=== PATIENT | male | born 1950 | race Caucasian/White ===

== ENCOUNTER → 2016-08-24 | Outpatient (CLI) | payer OTHER | LOC: FIMAGING 07:47 | DX: M13.852 Other specified arthritis, left hip (principal); M25.452 Effusion, left hip; Z96.642 Presence of left artificial hip joint | CPT/HCPCS: A9503 ==

== ENCOUNTER 2017-11-22 19:39 | Emergency (ER) | payer OTHER ==
[2017-11-22 19:44] VITALS: BP 142/93
--- NOTE | 2017-11-22 19:44 | EDPHY ---
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 He bent down and felt a "bubbly, painless" sensation in his left eye. He describes difficulty seeing out of the lower half of his left visual field only in his left eye. He says it "looks like a bubble" that moves around slightly "like an ameboid mass." He further describes it "like looking through gelatinous material that's moving in entire lower half of my vision. He has normal peripheral vision. No headache, weakness, paresthesias, pain, fever, or other complaints. REVIEW OF SYSTEMS: A comprehensive 10 system review of systems is otherwise negative aside from elements mentioned in the history of present illness. PMH: Cataract surgery 2 years ago - [facility] in [place]; hypertension; arthritis with multiple ortho surgeries; repeat hip dislocations; BPH. SOCIAL HISTORY: at bedside. Former ED physician. PHYSICAL EXAM: General:Patient is alert, in no acute distress. ENT:Eyes are normal to inspection. ENT inspection normal. Unable to distinguish any letters on chart with left eye. Intraocular pressure left eye: 10. Normal pupillary response. No scleral injection. EOMI. Neck: Normal inspection. Full range of motion. Respiratory:No respiratory distress. Cardiovascular: Normal cap refill. Skin: Normal color. No rash. Warm and dry. Extremities: Normal appearance. Full range of motion. Neuro: Oriented x3. Normal motor function. Normal sensory function. 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 Exam here is unremarkable. Patient's description is not consistent with a retinal detachment. Vitreous hemorrhage more likely. Normal intraocular pressure. 1mg PO Ativan ordered for anxiety. Ophthalmology paged. Consulted with Dr. Varner, ophthalmology. He will see patient in his office first thing tomorrow morning. Reassessed patient and discussed recommendations. He is comfortable with plan for follow up. Return precautions discussed. MDM: This patient presents with sudden onset of what sounds like a large floater. Given mobility of deficit, I think this is highly unlikely to represent retinal detachment or ischemic/embolic disease. Patient will be urgently evaluated by ophtho within 12 hours and he is comfortable with this plan. - Data Points Medications Given: Discontinued Medications Lorazepam (Ativan) 1 mg PO EDNOW ONE Stop: 11/22/17 19:54 Last Admin: 11/22/17 19:56 Dose: 1 mg General Time Seen by Provider: 11/22/17 19:43 Initial Vital Signs: Initial Vital Signs Temperature (C) 36.7 C 11/22/17 19:42 Heart Rate 120 H 11/22/17 19:42 Respiratory Rate 18 11/22/17 19:42 Blood Pressure 142/93 H 11/22/17 19:42 O2 Sat (%) 99 11/22/17 19:42 O2 Delivery Mode Room Air Allergies/Adverse Reactions: No Allergies [NKDA] Allergy (Verified 10/14/17 14:58) Home Medications: Medication Instructions Recorded Aspirin [Aspirin 81mg (*)] 81 mg PO DAILY 08/14/17 Tamsulosin HCl [Flomax 0.4 MG (*)] 0.2 mg PO DAILY 08/14/17 Testosterone IM [Testosterone 200 mg IM AD 08/14/17 100mg/ml IM inj (*)] lamoTRIgine [Lamotrigine] 200 mg PO DAILY 08/14/17 Percocet 10-325 mg Tablet 10/11/17 Departure - Departure Disposition: Home, Routine, Self-Care Clinical Impression: Visual changes Condition: Good Instructions: Blurred Vision (ED) Additional Instructions: Follow-up with Dr. Varner from ophthalmology first thing tomorrow morning, at 6 :45am. His office is at [address] [place] [address], [address], just across the street from the hospital. Return to the ED immediately for any change in condition or vision. We recommend you make arrangements to not drive home after the evaluation as he will likely dilate your pupil for exam. Referrals: NONE *PRIMARY CARE P,. [Primary Care Provider] - As per Instructions Kevin Varner MD [Medical Doctor] - As per Instructions Report Scribed for: Alli Chin Report Scribed by: April Tony Date of Report: 11/22/17 Time of Report: 19:44 Physician Review and Approval Statement: Portions of this note were transcribed by an ED scribe. I personally performed the history, physical exam, and medical decision making; and confirm the accuracy of the information in the transcribed note.
[2017-11-22] MEDS ORDERED: LORazepam 1 MG TAB PO ONE (19:53)
== END 2017-11-22 20:34 | disposition home or self-care (01) ==
DX: H54.62 Unqualified visual loss, left eye, normal vision right eye (principal); I10 Essential (primary) hypertension

== ENCOUNTER 2017-12-18 10:04 | Emergency (ER) | payer OTHER ==
[2017-12-18 10:12] VITALS: BP 124/81
--- NOTE | 2017-12-18 10:29 | EDPHY ---
H & P Stated Complaint: Retinal surgery 12/16/17, no change in symptoms Time Seen by Provider: 12/18/17 10:19 HPI/ROS: CHIEF COMPLAINT: Retinal surgery HISTORY OF PRESENT ILLNESS: Patient is a 67-year-old man with a history of cataract surgery several years ago and then retinal detachment recently. He had a retinal surgery Saturday with Dr. Herrera's office. He had laser stone. He is supposed to remain face down as much as possible and with an eye patch in place. He was seen in their clinic yesterday and had a good follow-up appointment. They are happy with the results. His called him and told him to come to the ER today because he was not being compliant with lying face down. They are . The patient is at home with 24 hr care trying to help him remain lying face down. The patients said that he told her this morning that he could not see out of the eye. The patient does not remember saying this and he thinks that his just "freaked out". 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 He states that he has no visual changes compared to yesterday. He states that his vision is completely better than it was before the surgery. No pain. No discharge. No increase in swelling. He denies any new symptoms today. Severity: Minimal Modifying factors: None REVIEW OF SYSTEMS: Constitutional: denies: chills, fever, recent illness, recent injury EENTM: See HPI Respiratory: denies: cough, shortness of breath Cardiac: denies: chest pain, irregular heart rate, lightheadedness, palpitations Gastrointestinal/Abdominal: denies: abdominal pain, diarrhea, nausea, vomiting, blood streaked stools Genitourinary: denies: dysuria, frequency, hematuria, pain Musculoskeletal: denies: joint pain, muscle pain Skin: denies: lesions, rash, jaundice, bruising Neurological: denies: headache, numbness, paresthesia, tingling, dizziness, weakness Hematologic/Lymphatic: denies: blood clots, easy bleeding, easy bruising Immunologic/allergic: denies: HIV/AIDS, transplant 10 systems reviewed and negative except as noted EXAM: GENERAL: Well-appearing, well-nourished and in no acute distress. HEAD: Atraumatic, normocephalic. EYES: Left eye with mild chemosis is. Visual acuity the report is baseline. He is hesitant to move his eye patch but did briefly. No sign of infection. Extraocular muscles intact. No pain. ENT: TMs normal, nares patent, oropharynx clear without exudates. Moist mucous membranes. NECK: Normal range of motion, supple without lymphadenopathy or JVD. LUNGS: Breath sounds clear to auscultation bilaterally and equal. No wheezes rales or rhonchi. HEART: Regular rate and rhythm without murmurs, rubs or gallops. ABDOMEN: Soft, nontender, normoactive bowel sounds. No guarding, no rebound. No masses appreciated. BACK: No CVA tenderness, no spinal tenderness, step-offs or deformities EXTREMITIES: Normal range of motion, no pitting or edema. No clubbing or cyanosis. NEUROLOGICAL: Cranial nerves II through XII grossly intact. Normal speech, normal gait. 5/5 strength, normal movement in all extremities, normal sensation , normal reflexes PSYCH: Normal mood, normal affect. SKIN: Warm, dry, normal turgor, no visible rashes or lesions. Source: Patient Exam Limitations: No limitations - Personal History Current Tetanus Diphtheria and Acellular Pertussis (TDAP): Yes - Medical/Surgical History Hx Asthma: No Hx Chronic Respiratory Disease: No Hx Diabetes: No Hx Cardiac Disease: No Hx Renal Disease: No Hx Cirrhosis: No Hx Alcoholism: No Hx HIV/AIDS: No Hx Splenectomy or Spleen Trauma: No Other PMH: L hip replacement, BPH, depression, htn. Retinal surgery 12/16/17 - Family History Significant Family History: No pertinent family hx - Social History Smoking Status: Never smoked Alcohol Use: Sober Drug Use: None Constitutional: Initial Vital Signs Temperature (C) 36.8 C 12/18/17 10:08 Heart Rate 83 12/18/17 10:08 Respiratory Rate 16 12/18/17 10:08 Blood Pressure 124/81 H 12/18/17 10:08 O2 Sat (%) 97 12/18/17 10:08 Allergies/Adverse Reactions: No Allergies [NKDA] Allergy (Verified 12/19/17 21:43) Home Medications: Medication Instructions Recorded Amphet Asp and D/Amphet [Adderall 30 mg PO BID 12/19/17 20 mg (*)] Diclofenac Sodium 1% [Voltaren Gel 1 fransisco TP DAILY PRN 12/19/17 (*)] Finasteride [Proscar 5 MG (*)] 5 mg PO DAILY 12/19/17 Herbals/Supplements -Info Only 1 ea PO DAILY 12/19/17 LORazepam [Ativan (*)] 2 mg PO TID PRN 12/19/17 Multivitamins [Multivitamin (*)] 1 each PO DAILY 12/19/17 Prednisolone Acetate/Pf 1 drop LEFTEYE QID 12/19/17 [Prednisolone Acet 1% Eye Drop] Prochlorperazine Maleate 10 mg PO Q6H PRN 12/19/17 [Compazine 10mg (*)] QUEtiapine FUMARATE [Seroquel 600 mg PO HS PRN 12/19/17 300mg (*)] Testosterone IM [Testosterone 200 mg IM Q14D 12/19/17 100mg/ml IM inj (*)] celeCOXIB [Celebrex (*)] 200 mg PO BID PRN 12/19/17 lamoTRIgine [LamICTAL 100 MG (*)] 200 mg PO DAILY 12/19/17 Medical Decision Making ED Course/Re-evaluation: It sounds as though the patient's told him to come here basically because he was noncompliant with lying face down at home. We discussed this. The patient has 24 hr care helping him to remain lying face down. I do not think that this will be any better in the hospital. The patient is otherwise asymptomatic and has no complaints. I did offer to call Dr. Herrera's office to see if she could follow up with him again today for recheck. He would like this. 10:30 p.m. I did discussed the case with Dr. Medina who saw him yesterday. She does not feel that any intervention or admission is needed this time and will follow up with him next week as planned. Differential Diagnosis: Partial list of the Differential diagnosis considered include but were not limited to; retinal detachment, anxiety and although unlikely based on the history and physical exam, I also considered abrasion, infection. Departure - Departure Disposition: Home, Routine, Self-Care Clinical Impression: Subconjunctival hemorrhage of left eye, H/O eye surgery Condition: Fair Instructions: Subconjunctival Hemorrhage (ED) Additional Instructions: Continue to wear your eye patch. Follow up with Dr. Herrera's office next week as planned. Remain lying face down as much as possible. Referrals: JEAN MARIE MAZARIEGOS [Other] - As per Instructions
== END 2017-12-18 10:41 | disposition home or self-care (01) ==
DX: H11.32 Conjunctival hemorrhage, left eye (principal)

== ENCOUNTER 2017-12-19 19:40 | Observation (INO) | payer OTHER ==
--- NOTE | 2017-12-19 20:14 | EDPHY ---
H & P Time Seen by Provider: 12/19/17 19:58 HPI/ROS: Chief complaint. Hip dislocation HPI. Patient is a 67-year-old male with prosthetic left hip. He was seen October 11 and October 14 2017 for hip dislocation. The patient was also seen November 22 for retinal detachment. Tonight he twisted his foot and his left hip when out and feels like previous dislocation. He was unable to stand. No other injuries. Patient's ex- tells me that the patient has not been doing well at home. He has caretakers who are telling her that he is crawling around on the floor confused and disoriented. He apparently has access to quite a few medications that he is taking indiscriminately. She asked the caretakers to bring him to the ER yesterday however apparently the evaluation was for recheck of his high from the recent retinal detachment and there of behavior issues were not addressed. She is also a physician and tells me that in her opinion he is not safe to go home. ROS 10 systems were reviewed and negative with the exception of the elements mentioned in the history of present illness Past Medical/Surgical History: Left hip replacement, BPH, depression, hypertension, retinal surgery Social History: , nonsmoker, no alcohol Smoking Status: Never smoked Physical Exam: General Appearance: Alert well-developed male moderate distress vital signs significant for initial blood pressure low 101/64 Eyes: Pupils equal and round no pallor or injection. ENT, Mouth: Mucous membranes are moist. Respiratory: There are no retractions, lungs are clear to auscultation. Cardiovascular: Regular rate and rhythm. Gastrointestinal: Abdomen is soft and nontender, no masses, bowel sounds normal. Neurological: Awake and alert, sensory and motor exams grossly normal. Skin: Warm and dry, no rashes. Musculoskeletal: Neck is supple nontender. Extremities left hip is shortened and externally rotated. Pain with range of motion about the left hip Psychiatric: Patient is oriented X 3, there is no agitation. However the patient does have slurred speech. Constitutional: Initial Vital Signs Temperature (C) 36.5 C 12/19/17 19:41 Heart Rate 97 12/19/17 19:41 Respiratory Rate 16 12/19/17 19:41 Blood Pressure 101/64 12/19/17 19:41 O2 Sat (%) 95 12/19/17 19:41 O2 Delivery Mode [Post Nasal Cannula Procedure 2nd] O2 Delivery Mode [Post Non-Rebreather Mask Procedure 1st] O2 Delivery Mode [Procedural Non-Rebreather Mask 2nd] O2 Delivery Mode [Procedural Non-Rebreather Mask 1st] O2 Delivery Mode [.Immediate Non-Rebreather Mask Pre-Procedure] O2 Delivery Mode Room Air O2 (L/minute) [Post Procedure 3 2nd] O2 (L/minute) [Post Procedure 15 1st] O2 (L/minute) [Procedural 2nd] 15 O2 (L/minute) [Procedural 1st] 15 O2 (L/minute) [.Immediate Pre- 15 Procedure] O2 (L/minute) 15 Allergies/Adverse Reactions: No Allergies [NKDA] Allergy (Verified 12/19/17 21:43) Home Medications: Medication Instructions Recorded Amphet Asp and D/Amphet [Adderall 30 mg PO BID 12/19/17 20 mg (*)] Diclofenac Sodium 1% [Voltaren Gel 1 fransisco TP DAILY PRN 12/19/17 (*)] Finasteride [Proscar 5 MG (*)] 5 mg PO DAILY 12/19/17 Herbals/Supplements -Info Only 1 ea PO DAILY 12/19/17 LORazepam [Ativan (*)] 2 mg PO TID PRN 12/19/17 Multivitamins [Multivitamin (*)] 1 each PO DAILY 12/19/17 Prednisolone Acetate/Pf 1 drop LEFTEYE QID 12/19/17 [Prednisolone Acet 1% Eye Drop] Prochlorperazine Maleate 10 mg PO Q6H PRN 12/19/17 [Compazine 10mg (*)] QUEtiapine FUMARATE [Seroquel 600 mg PO HS PRN 12/19/17 300mg (*)] Testosterone IM [Testosterone 200 mg IM Q14D 12/19/17 100mg/ml IM inj (*)] celeCOXIB [Celebrex (*)] 200 mg PO BID PRN 12/19/17 lamoTRIgine [LamICTAL 100 MG (*)] 200 mg PO DAILY 12/19/17 Medical Decision Making - Diagnostics Imaging Results: Imaging Impressions Hip X-Ray 12/19/17 20:04 Impression: Superior dislocation of the left hip arthroplasty. Hip X-Ray 12/19/17 21:12 Impression: Interval reduction of left hip dislocation with no visible fracture. Initial hip x-ray interpreted by me shows superior dislocation Post reduction shows reduction of the hip dislocation and no fracture Procedures: IV normal saline. Dilaudid 0.5 mg IV Due to patient's low blood pressure is given a L of saline but I changed my procedural sedation plan from propofol to IV ketamine Procedure: Conscious sedation. Indication: Hip reduction I performed sedation and reduction The patient is an appropriate candidate to tolerate procedural sedation. The patient's vital signs and mental status are appropriate. The risks, benefits and alternatives of the sedation were discussed with the patient. The patient is ASA classification 1. The patient' s Mallampati airway score was 1 and the patient did meet the 3-3-2 airway measurements. A time out was completed. The patient was sedated with ketamine 100 mg IV. The patient was monitored with continuous pulse oximetry, groundwater monitoring technician and end tidal CO2. There were no complications and no significant hypoxemia. I performed both the sedation and the procedure. The total time I spent at the bedside during the procedural sedation was 20 minutes. The patient was examined after the procedural sedation and has returned to their pre -sedation baseline with normal vital signs and a normal examination. Procedure hip reduction--after adequate sedation, I was able to put traction on the hip and flex it. Counter traction applied to the pelvis. With gentle internal external rode a rotation with the hip in flexion I was able to produce an audible pop and sense that the hip was reduced. Postprocedure neurovascular check is intact. ED Course/Re-evaluation: In conversation with patient's ex- she feels again that he is not safe to go home. He I discussed this with the patient and he is amenable to admission. I consulted discussed case Dr. Kim, hospitalist, who agrees to the admission I consulted discussed case with Dr. Zamarripa for orthopedist as the patient has been seen by Dr. Booth previously for his hip dislocation. They will see the patient while the patient is in the hospital Differential Diagnosis: Hip dislocation this recurrent. Now reduced. No evidence for fracture. Substance abuse and family feels the patient is not safe to be at home. - Data Points Laboratory Results: Laboratory Results 12/19/17 20:05 12/19/17 20:05 12/19/17 12/19/17 20:05 20:05 WBC 9.56 10^3/uL H 10^3/uL (3.80-9.50) RBC 5.86 10^6/uL 10^6/uL (4.40-6.38) Hgb 16.8 g/dL g/dL (13.7-17.5) Hct 50.7 % % (40.0-51.0) MCV 86.5 fL fL (81.5-99.8) MCH 28.7 pg pg (27.9-34.1) MCHC 33.1 g/dL g/dL (32.4-36.7) RDW 14.6 % % (11.5-15.2) Plt Count 278 10^3/uL 10^3/uL (150-400) MPV 8.8 fL fL (8.7-11.7) Neut % (Auto) 72.9 % % (39.3-74.2) Lymph % (Auto) 15.0 % % (15.0-45.0) [place] % (Auto) 8.3 % % (4.5-13.0) Eos % (Auto) 2.6 % % (0.6-7.6) Baso % (Auto) 0.7 % % (0.3-1.7) Nucleat RBC Rel Count 0.0 % % (0.0-0.2) Absolute Neuts (auto) 6.97 10^3/uL H 10^3/uL (1.70-6.50) Absolute Lymphs (auto) 1.43 10^3/uL 10^3/uL (1.00-3.00) Absolute Monos (auto) 0.79 10^3/uL 10^3/uL (0.30-0.80) Absolute Eos (auto) 0.25 10^3/uL 10^3/uL (0.03-0.40) Absolute Basos (auto) 0.07 10^3/uL 10^3/uL (0.02-0.10) Absolute Nucleated RBC 0.00 10^3/uL 10^3/uL (0-0.01) Immature Gran % 0.5 % % (0.0-1.1) Immature Gran # 0.05 10^3/uL 10^3/uL (0.00-0.10) Sodium 136 mEq/L mEq/L (135-145) Potassium 4.3 mEq/L mEq/L (3.3-5.0) Chloride 105 mEq/L mEq/L (97-110) Carbon Dioxide 19 mEq/l L mEq/l (22-31) Anion Gap 12 mEq/L mEq/L (6-14) BUN 22 mg/dL mg/dL (7-23) Creatinine 0.9 mg/dL mg/dL (0.7-1.3) Estimated GFR > 60 Glucose 136 mg/dL H mg/dL (70-100) Calcium 9.9 mg/dL mg/dL (8.5-10.4) Ethyl Alcohol < 10 mg/dL mg/dL (0-10) Medications Given: Discontinued Medications Hydromorphone HCl (Dilaudid) 0.5 mg IVP EDNOW ONE Stop: 12/19/17 20:24 Last Admin: 12/19/17 20:35 Dose: 0.5 mg Sodium Chloride (Ns) 1,000 mls @ 0 mls/hr IV EDNOW ONE; Wide Open PRN Reason: Protocol Stop: 12/19/17 20:24 Last Admin: 12/19/17 20:45 Dose: 1,000 mls Ketamine HCl (Ketamine) 0 - 200 mg IV EDNOW ONE Stop: 12/19/17 20:46 Last Admin: 12/19/17 21:15 Dose: 100 mg Departure - Departure Disposition: [facility] Inpatient Acute Clinical Impression: Hip dislocation, left Qualifiers: Encounter type: initial encounter Qualified Code(s): S73.005A - Unspecified dislocation of left hip, initial encounter Condition: Fair
[2017-12-19 20:19] LABS: PLATELET COUNT 278 10^3/uL (150-400)
[2017-12-19] MEDS ORDERED: HYDROmorphONE/DILAUDID 2 MG/ML INJ IVP ONE (20:23)
[2017-12-19] MEDS ORDERED: NS 1,000 ML IV ONE (20:23)
[2017-12-19] MEDS ORDERED: HYDROmorphONE/DILAUDID 1 MG/ML INJ ONE (20:24)
[2017-12-19] MEDS ORDERED: PROPOFOL 200 MG/20 ML VIAL ONE (20:27)
[2017-12-19] MEDS ORDERED: KETAMINE 500 MG/10 ML VIAL ONE (20:38)
[2017-12-19] MEDS ORDERED: KETAMINE 200 MG/20 ML VIAL IV ONE (20:45)
[2017-12-19] MEDS ORDERED: ONDANSETRON DISINTEGRATING 4 MG TAB PO PRN (22:08)
[2017-12-19] MEDS ORDERED: ONDANSETRON 4 MG/2 ML VIAL IVP PRN (22:08)
[2017-12-19] MEDS ORDERED: ACETAMINOPHEN 325 MG TAB PO PRN (22:08)
--- NOTE | 2017-12-19 23:01 | PDGENHP ---
History and Physical - Chief Complaint L hip pain - History of Present Illness 67 yo M w/ hx of depression and OA presents with L hip pain. The patient tells me he was trying to move a coffee table today when his leg got stuck underneath. He immediately experienced pain in his L hip. He has had this hip dislocate on multiple prior occasions and states he felt similarly. Upon arrival in the ED this was confirmed. The hip was reduced in the ED with XR confirmation. He is being admitted for Orthopedics consultation and PT/OT evaluations. Case discussed with Dr. Lozano, records reviewed in EMR. History Information - Allergies/Home Medication List Allergies/Adverse Reactions: No Allergies [NKDA] Allergy (Verified 12/19/17 21:43) Home Medications: Amphet Asp and D/Amphet [Adderall 20 mg (*)] 30 mg PO BID 12/19/17 [Last Taken 12/18/17] Diclofenac Sodium 1% [Voltaren Gel (*)] 1 fransisco TP DAILY PRN 12/19/17 [Last Taken Unknown] Finasteride [Proscar 5 MG (*)] 5 mg PO DAILY 12/19/17 [Last Taken 12/19/17] Herbals/Supplements -Info Only 1 ea PO DAILY 12/19/17 [Last Taken Unknown] LORazepam [Ativan (*)] 2 mg PO TID PRN 12/19/17 [Last Taken Unknown] Multivitamins [Multivitamin (*)] 1 each PO DAILY 12/19/17 [Last Taken Unknown] Prednisolone Acetate/Pf [Prednisolone Acet 1% Eye Drop] 1 drop LEFTEYE QID 12/19 [Last Taken 12/19/17] Prochlorperazine Maleate [Compazine 10mg (*)] 10 mg PO Q6H PRN 12/19/17 [Last Taken Unknown] QUEtiapine FUMARATE [Seroquel 300mg (*)] 600 mg PO HS PRN 12/19/17 [Last Taken Unknown] Testosterone IM [Testosterone 100mg/ml IM inj (*)] 200 mg IM Q14D 12/19/17 [ Last Taken 12/15/17] celeCOXIB [Celebrex (*)] 200 mg PO BID PRN 12/19/17 [Last Taken Unknown] lamoTRIgine [LamICTAL 100 MG (*)] 200 mg PO DAILY 12/19/17 [Last Taken 12/19/17] I have personally reviewed and updated: family history, medical history - Past Medical History arthritis Additional medical history: Depression. Insomnia. BPH - Surgical History Reports: spinal surgery Additional surgical history: Bilateral hip surgeries. Bilateral knee surgeries. L retinal detachment - Family History Additional family history: Asked, denies - Social History Smoking Status: Never smoked Review of Systems Review of Systems: ROS: 10pt was reviewed & negative except for what was stated in HPI & below Physical Exam Physical Exam: Temp Pulse Resp BP Pulse Ox 36.5 C 88 16 109/61 95 12/19/17 22:20 12/19/17 22:20 12/19/17 22:20 12/19/17 22:20 12/19/17 22:20 O2 (L/minute) 2 Constitutional: no apparent distress, not in pain Eyes: anicteric sclera, other (L eye covered in patch) Ears, Nose, Mouth, Throat: moist mucous membranes, no oral mucosal ulcers Cardiovascular: regular rate and rhythym, no murmur, rub, or gallop Respiratory: no respiratory distress, clear to auscultation Gastrointestinal: normoactive bowel sounds, soft, non-tender abdomen Skin: warm, normal color Musculoskeletal: full muscle strength, pain with ROM (L hip) Neurologic: AAOx3, No weakness Psychiatric: interacting appropriately, not anxious Lab Data & Imaging Review 12/19/17 20:05 12/19/17 20:05 WBC 9.56 10^3/uL (3.80-9.50) H 12/19/17 20:05 RBC 5.86 10^6/uL (4.40-6.38) 12/19/17 20:05 Hgb 16.8 g/dL (13.7-17.5) 12/19/17 20:05 Hct 50.7 % (40.0-51.0) 12/19/17 20:05 MCV 86.5 fL (81.5-99.8) 12/19/17 20:05 MCH 28.7 pg (27.9-34.1) 12/19/17 20:05 MCHC 33.1 g/dL (32.4-36.7) 12/19/17 20:05 RDW 14.6 % (11.5-15.2) 12/19/17 20:05 Plt Count 278 10^3/uL (150-400) 12/19/17 20:05 MPV 8.8 fL (8.7-11.7) 12/19/17 20:05 Neut % (Auto) 72.9 % (39.3-74.2) 12/19/17 20:05 Lymph % (Auto) 15.0 % (15.0-45.0) 12/19/17 20:05 [place] % (Auto) 8.3 % (4.5-13.0) 12/19/17 20:05 Eos % (Auto) 2.6 % (0.6-7.6) 12/19/17 20:05 Baso % (Auto) 0.7 % (0.3-1.7) 12/19/17 20:05 Nucleat RBC Rel Count 0.0 % (0.0-0.2) 12/19/17 20:05 Absolute Neuts (auto) 6.97 10^3/uL (1.70-6.50) H 12/19/17 20:05 Absolute Lymphs (auto) 1.43 10^3/uL (1.00-3.00) 12/19/17 20:05 Absolute Monos (auto) 0.79 10^3/uL (0.30-0.80) 12/19/17 20:05 Absolute Eos (auto) 0.25 10^3/uL (0.03-0.40) 12/19/17 20:05 Absolute Basos (auto) 0.07 10^3/uL (0.02-0.10) 12/19/17 20:05 Absolute Nucleated RBC 0.00 10^3/uL (0-0.01) 12/19/17 20:05 Immature Gran % 0.5 % (0.0-1.1) 12/19/17 20:05 Immature Gran # 0.05 10^3/uL (0.00-0.10) 12/19/17 20:05 Sodium 136 mEq/L (135-145) 12/19/17 20:05 Potassium 4.3 mEq/L (3.3-5.0) 12/19/17 20:05 Chloride 105 mEq/L (97-110) 12/19/17 20:05 Carbon Dioxide 19 mEq/l (22-31) L 12/19/17 20:05 Anion Gap 12 mEq/L (6-14) 12/19/17 20:05 BUN 22 mg/dL (7-23) 12/19/17 20:05 Creatinine 0.9 mg/dL (0.7-1.3) 12/19/17 20:05 Estimated GFR > 60 12/19/17 20:05 Glucose 136 mg/dL (70-100) H 12/19/17 20:05 Calcium 9.9 mg/dL (8.5-10.4) 12/19/17 20:05 Ethyl Alcohol < 10 mg/dL (0-10) 12/19/17 20:05 Imaging Review: Imaging Impressions Hip X-Ray 12/19/17 20:04 Impression: Superior dislocation of the left hip arthroplasty. Hip X-Ray 12/19/17 21:12 Impression: Interval reduction of left hip dislocation with no visible fracture. Chest X-Ray 12/19/17 21:30 Impression: No acute findings in the chest. Assessment & Plan Assessment: 67 yo M w/ hx of arthritis and depression presents with L hip dislocation. Plan: 1. L hip dislocation, acute - S/p reduction in ED, confirmed by XR (personally reviewed/interpreted). He tells me this has occurred on several occasions in the past. - Admit for observation - PT/OT evaluations - Orthopedics consulted in the ED, will see patient in the morning 2. Depression, insomnia - On multiple sedating meds (lorazepam, Seroquel), which may have contributed to above incident. - Continue home medications pending reconciliation 3. Arthritis - S/p multiple surgeries (back, b/l hips, b/l knees). Diet - Regular Code - Full Ppx - LMWH Dispo - Admit under observation status
--- NOTE | 2017-12-19 23:24 | CPEKG ---
Test Reason : OPEN Blood Pressure : / mmHG Vent. Rate : 092 BPM Atrial Rate : 092 BPM P-R Int : 170 ms QRS Dur : 110 ms QT Int : 351 ms P-R-T Axes : 063 070 032 degrees QTc Int : 435 ms Sinus rhythm Confirmed by Adán Huang ([id number]) on 12/19/2017 11:24:19 PM Referred By: Confirmed By:Adán Huang
[2017-12-20 04:50] VITALS: BP 109/76
[2017-12-20 06:26] LABS: PLATELET COUNT 263 10^3/uL (150-400)
--- NOTE | 2017-12-20 07:28 | PDDCSUM ---
Discharge Summary Discharge Summary: Patient left AMA shortly after admission. Please see admission H&P for details regarding presentation.
[2017-12-20] MEDS ORDERED: ENOXAPARIN 40 MG/0.4 ML SYR SC SCH (09:00)
--- NOTE | 2017-12-20 09:40 | ASDISCHSUM ---
Discharge Information Plan Status:Home with No Needs Medically Cleared to Leave: Discharge Date:12/20/2017 07:21 AM CM D/C Disposition:Against Medical Advice ADT D/C Disposition:Against Medical Advice Projected Discharge Date:12/20/2017 07:21 AM Transportation at D/C: Discharge Delay Reason: Follow-Up Date:12/20/2017 07:21 AM Discharge Slot: Final Diagnosis: Placement Information Patient Contact Information Contact Name:SHIRAZ Relationship: Address:[address] City:[place] Alternate Phone: [facility]/Zip Code:[place] [address] Email: Financial Information Financial Class:Medicare Primary Plan Desc:MEDICARE OUTPATIENT Primary Plan Number:[id number] Secondary Plan Desc:YANA Secondary Plan Number:[id number] Assessment Information [facility] CM Progress Note CM Note CM Note Notes: 12/20/2017 Case Management Note Pt left [facility] AMA for an eye appointment. Pt admitted for hip dislocation. Date Signed: 12/20/2017 09:39 AM Electronically Signed By:Karen Llanos RN Intervention Information
--- NOTE | 2017-12-20 09:40 | ASMTCMCOM ---
CM Note CM Note Notes: 12/20/2017 Case Management Note Pt left [facility] for an eye appointment. Pt admitted for hip dislocation. Date Signed: 12/20/2017 09:39 AM Electronically Signed By:Karen Llanos RN
== END 2017-12-20 07:21 | disposition left against medical advice (07) ==
LOC: F3N 22:10
PROVIDERS: ADMIT Internal Medicine; ATTEND Internal Medicine
PROC: 0SSBXZZ Reposition Left Hip Joint, External Approach (ICD-10-PCS; principal; 2017-12-19)
DX: T84.021A Dislocation of internal left hip prosthesis, initial encounter (principal); E86.9 Volume depletion, unspecified
CPT/HCPCS: 27250; 71045; 73502; 73521; 93005; 96361; 96374; 99285; G0378; J1170; J2704; 80305; G0480

== ENCOUNTER 2017-12-29 09:48 | Emergency (ER) | payer OTHER ==
[2017-12-29] MEDS ORDERED: HYDROmorphONE/DILAUDID 2 MG/ML INJ IVP ONE (09:53)
[2017-12-29] MEDS ORDERED: PROPOFOL 200 MG/20 ML VIAL ONE (10:13)
--- NOTE | 2017-12-29 10:13 | EDPHY ---
H & P Stated Complaint: L hip dislocation Time Seen by Provider: 12/29/17 09:52 HPI/ROS: CHIEF COMPLAINT: Left hip dislocation HISTORY OF PRESENT ILLNESS: 67-year-old male presents with a left hip dislocation. He externally rotated and flexed his left hip this morning just prior to arrival. Immediate onset severe left hip pain and inability to bear weight. Transported to the ED by EMS. Fentanyl IV given prior to arrival. Similar to prior episodes of left hip dislocation. 3 prior hip dislocations in the past month. No weakness or numbness. No other injuries. Planning for repeat left hip surgery. Last oral intake was at 7:00 a.m., only coffee. REVIEW OF SYSTEMS: complete 10 point ROS reviewed and is negative except for the noted elements in the HPI Source: Patient - Medical/Surgical History Hx Asthma: No Hx Chronic Respiratory Disease: No Hx Diabetes: No Hx Cardiac Disease: No Hx Renal Disease: No Hx Cirrhosis: No Hx Alcoholism: No Hx HIV/AIDS: No Hx Splenectomy or Spleen Trauma: No Other PMH: Bi hip replacement, left x3 hip replacment, BPH, depression, htn. 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 - Physical Exam Exam: General Appearance: Alert, pleasant Eyes: Pupils equal and round, no conjunctival pallor ENT, Mouth: Mucous membranes moist Neck: Normal inspection Respiratory: Lungs are clear to auscultation Cardiovascular: Regular rate and rhythm Gastrointestinal: Abdomen is soft and nontender Neurological: Alert, anxious, nonfocal exam Skin: Warm and dry, no rash Extremities: Left lower extremity-externally rotated and shortened Psychiatric: Anxious Constitutional: Initial Vital Signs Temperature (C) 36.8 C 12/29/17 09:51 Heart Rate 114 H 12/29/17 09:51 Respiratory Rate 18 12/29/17 09:51 Blood Pressure 155/84 H 12/29/17 09:51 O2 Sat (%) 92 12/29/17 09:51 O2 Delivery Mode [Post Non-Rebreather Mask Procedure 2nd] O2 Delivery Mode [Post Non-Rebreather Mask Procedure 1st] O2 Delivery Mode [Procedural Non-Rebreather Mask 2nd] O2 Delivery Mode [Procedural Non-Rebreather Mask 1st] O2 Delivery Mode [.Immediate Non-Rebreather Mask Pre-Procedure Procedural 1st] O2 Delivery Mode Room Air O2 (L/minute) [Post Procedure 15 2nd] O2 (L/minute) [Post Procedure 18 1st] O2 (L/minute) [Procedural 2nd] 15 O2 (L/minute) [Procedural 1st] 15 O2 (L/minute) [.Immediate Pre- 15 Procedure Procedural 1st] Allergies/Adverse Reactions: No Allergies [NKDA] Allergy (Verified 12/29/17 09:52) Home Medications: Medication Instructions Recorded Amphet Asp and D/Amphet [Adderall 30 mg PO BID 12/19/17 20 mg (*)] Diclofenac Sodium 1% [Voltaren Gel 1 fransisco TP DAILY PRN 12/19/17 (*)] Finasteride [Proscar 5 MG (*)] 5 mg PO DAILY 12/19/17 Herbals/Supplements -Info Only 1 ea PO DAILY 12/19/17 LORazepam [Ativan (*)] 2 mg PO TID PRN 12/19/17 Multivitamins [Multivitamin (*)] 1 each PO DAILY 12/19/17 Prednisolone Acetate/Pf 1 drop LEFTEYE QID 12/19/17 [Prednisolone Acet 1% Eye Drop] Prochlorperazine Maleate 10 mg PO Q6H PRN 12/19/17 [Compazine 10mg (*)] QUEtiapine FUMARATE [Seroquel 600 mg PO HS PRN 12/19/17 300mg (*)] Testosterone IM [Testosterone 200 mg IM Q14D 12/19/17 100mg/ml IM inj (*)] celeCOXIB [Celebrex (*)] 200 mg PO BID PRN 12/19/17 lamoTRIgine [LamICTAL 100 MG (*)] 200 mg PO DAILY 12/19/17 Medical Decision Making - Diagnostics Imaging Results: Imaging Impressions Pelvis X-Ray 12/29/17 09:53 Impression: Superior left hip arthroplasty dislocation. Hip X-Ray 12/29/17 10:27 Impression: 1. Reduction of left hip arthroplasty dislocation. 2. Periprosthetic lucency adjacent to the distal left femoral stem, suspicious for loosening. Findings discussed with TERE CONKLIN 12/29/2017 at 10:55. Left hip x-ray reveals a hip dislocation. Imaging: I viewed and interpreted images myself ED Course/Re-evaluation: Procedure: Procedural sedation. A pre-sedation evaluation was completed on the patient on patient arrival. Patient is an appropriate candidate for procedural sedation. The risks of the sedation were discussed with the patient. The patient's airway was evaluated with a 3-3-2 rule; Mallampati score: 1E; there is no evidence of a difficult airway. A time out was completed. The patient was sedated with propofol 100 mg IV. The patient was monitored with continuous pulse oximetry, capnography and ekg monitor tech. There were no complications and no significant hypoxemia. I remained at the bedside for the sedation. The total time I spent in the procedural sedation was 25 minutes. Procedure: Dislocation reduction. Indication: Dislocation of the left hip joint. Risks, benefits, alternatives discussed with the patient and consent obtained. The hip was reduced with flexion and internal/external rotation without complications. Post reduction the patient's neurovascular exam is normal. Post reduction x-ray demonstrates reduction of the joint to the anatomic position. The procedure was performed by myself. X-ray results discussed with the patient. He tolerated the procedure well and there were no complications. He clearly understands the left hip restrictions, but apparently has been somewhat noncompliant with the guidelines. He will follow up with his orthopedic surgeon in the office this week. - Data Points Medications Given: Discontinued Medications Hydromorphone HCl (Dilaudid) 1 mg IVP EDNOW ONE Stop: 12/29/17 09:54 Last Admin: 12/29/17 10:02 Dose: Not Given Morphine Sulfate (Morphine) 10 mg IVP EDNOW ONE Stop: 12/29/17 10:08 Last Admin: 12/29/17 10:12 Dose: 10 mg Propofol (Diprivan) 130 mg IVP EDNOW ONE Stop: 12/29/17 11:05 Last Admin: 12/29/17 11:05 Dose: 130 mg Departure - Departure Disposition: Home, Routine, Self-Care Clinical Impression: Hip dislocation, left Qualifiers: Encounter type: initial encounter Qualified Code(s): S73.005A - Unspecified dislocation of left hip, initial encounter Condition: Good Instructions: Hip Dislocation (ED) Referrals: JEAN MARIE MAZARIEGOS [Other] - As per Instructions
[2017-12-29] MEDS ORDERED: PROPOFOL 200 MG/20 ML VIAL IVP ONE (11:04)
[2017-12-29 11:35] VITALS: BP 118/70
== END 2017-12-29 11:35 | disposition home or self-care (01) ==
LOC: EDUNIT#
PROC: 0SSBXZZ Reposition Left Hip Joint, External Approach (ICD-10-PCS; principal; 2017-12-29)
DX: S73.005A Unspecified dislocation of left hip, initial encounter (principal); I10 Essential (primary) hypertension; Z96.643 Presence of artificial hip joint, bilateral
CPT/HCPCS: 27252; 72170; 73502; 96374; 96375; 99285; J1170; J2270; J2704

== ENCOUNTER → 2018-02-06 | Outpatient (CLI) | payer OTHER ==
[~2018-02-06] MED LIST: IOPAMIDOL (ISOVUE 370) 100 ML BTL IV ONE; LIDOCAINE 1% 300 MG/30 ML SDV ONE
== END ==
LOC: FIMAGING 12:50
PROC: 0S9D30Z Drainage of Left Knee Joint with Drainage Device, Percutaneous Approach (ICD-10-PCS; principal; 2018-02-06)
DX: T84.021A Dislocation of internal left hip prosthesis, initial encounter (principal); Z96.642 Presence of left artificial hip joint
CPT/HCPCS: 20611; 76882; Q9967

== ENCOUNTER 2018-04-07 09:25 | Emergency (ER) | payer OTHER ==
--- NOTE | 2018-04-07 09:48 | EDPHY ---
H & P Time Seen by Provider: 04/07/18 09:38 HPI/ROS: Chief complaint. Left hip pain HPI. Patient is a 67-year-old male here by EMS with left hip pain. The initial charts as limited trauma activation after fall. The patient however denies that this is true. He tells me he was bending over to put on a sock this morning and had sudden pain in the left hip. Unable to walk. He has hip prosthesis and has had multiple hip dislocations. He tells me this feels the same. He had a retinal detachment 2 months ago. He is awaiting further surgery to the left hip. Denies any other injuries. No chest pain or shortness of breath. No abdominal pain. Patient received fentanyl per EMS ROS 10 systems were reviewed and negative with the exception of the elements mentioned in the history of present illness Past Medical/Surgical History: Bilateral hip replacements. Left hip dislocation times multiple, BPH, depression, hypertension, retinal detachment and surgery Social History: , nonsmoker, no alk Smoking Status: Never smoked Physical Exam: General Appearance: Alert well-developed male moderate distress. Vital signs are stable Eyes: Pupils equal and round no pallor or injection. ENT, Mouth: Mucous membranes are moist. Respiratory: There are no retractions, lungs are clear to auscultation. Cardiovascular: Regular rate and rhythm. Gastrointestinal: Abdomen is soft and nontender, no masses, bowel sounds normal. Neurological: Awake and alert, sensory and motor exams grossly normal. Skin: Warm and dry, no rashes. Abscess left hip measuring 2 x 2 cm. Musculoskeletal: Neck is supple nontender. Extremities pain with motion left hip. Tenderness to palpation left hip. Distal motor vascular sensitivity is intact Psychiatric: Patient is oriented X 3, there is no agitation. Constitutional: Initial Vital Signs Temperature (C) 36.5 C 04/07/18 09:30 Heart Rate 92 04/07/18 09:30 Respiratory Rate 16 04/07/18 09:30 Blood Pressure 129/75 H 04/07/18 09:30 O2 Sat (%) 96 04/07/18 09:30 O2 Delivery Mode Room Air Allergies/Adverse Reactions: No Allergies [NKDA] Allergy (Verified 04/07/18 09:32) Home Medications: Medication Instructions Recorded Amphet Asp and D/Amphet [Adderall 30 mg PO BID 12/19/17 20 mg (*)] Diclofenac Sodium 1% [Voltaren Gel 1 fransisco TP DAILY PRN 12/19/17 (*)] Finasteride [Proscar 5 MG (*)] 5 mg PO DAILY 12/19/17 Herbals/Supplements -Info Only 1 ea PO DAILY 12/19/17 LORazepam [Ativan (*)] 2 mg PO TID PRN 12/19/17 Multivitamins [Multivitamin (*)] 1 each PO DAILY 12/19/17 Prednisolone Acetate/Pf 1 drop LEFTEYE QID 12/19/17 [Prednisolone Acet 1% Eye Drop] Prochlorperazine Maleate 10 mg PO Q6H PRN 12/19/17 [Compazine 10mg (*)] QUEtiapine FUMARATE [Seroquel 600 mg PO HS PRN 12/19/17 300mg (*)] Testosterone IM [Testosterone 200 mg IM Q14D 12/19/17 100mg/ml IM inj (*)] celeCOXIB [Celebrex (*)] 200 mg PO BID PRN 12/19/17 lamoTRIgine [LamICTAL 100 MG (*)] 200 mg PO DAILY 12/19/17 Medical Decision Making - Diagnostics Imaging Results: Imaging Impressions Hip X-Ray 04/07/18 09:45 Impression: Left hip dislocation. Hip X-Ray 04/07/18 10:38 Impression: Persistent left hip dislocation. Hip X-Ray 04/07/18 11:07 Impression: Good anatomic reduction of left total hip arthroplasty. X-ray interpreted by me shows left hip dislocation of the prosthesis. Procedures: Procedure: Conscious sedation. Indication: Hip dislocation I performed sedation and procedure The patient is an appropriate candidate to tolerate procedural sedation. The patient's vital signs and mental status are appropriate. The risks, benefits and alternatives of the sedation were discussed with the patient. The patient is ASA classification 1. The patient' s Mallampati airway score was 1 and the patient did meet the 3-3-2 airway measurements. A time out was completed. The patient was sedated with propofol 100 mg IV. The patient was monitored with continuous pulse oximetry, cardiac monitor and end tidal CO2. There were no complications and no significant hypoxemia. I performed both the sedation and the procedure. The total time I spent at the bedside during the procedural sedation was 20 minutes. The patient was examined after the procedural sedation and has returned to their pre -sedation baseline with normal vital signs and a normal examination. Procedure dislocated hip reduction--after adequate sedation the patient's hip is flexed and knee is flexed. Traction counter traction allowed reduction by me. Post reduction shows good length an almond time anatomic position up the leg. Distal pulses and sensation are symmetrical. Post reduction x-ray shows adequate reduction Incision and drainage of abscess. While the patient was sedated with propofol I infiltrated the abscess left hip with 1% lidocaine with epinephrine. It is incised with a 11 blade. Quite a bit of blood and pus is extruded. The cavity is probed with hemostats to break up loculations. Irrigated. It is packed with iodoform gauze. Patient tolerates the procedure well ED Course/Re-evaluation: Dr. Buster Garcia [phone]--I consulted and discussed the case with Dr. Schreiber who will see the patient on Saturday and discussed hip revision. Patient is back to baseline. He and I discussed treatment plan including criteria for return importance of follow-up and further evaluation. He expresses understanding and agreement Patient has a hip brace which is replaced Differential Diagnosis: Considered dislocation, hardware malfunction, pelvic fracture. The patient also has an abscess and concern is for infection into the hardware. Patient's orthopedist tells me that he does have infected hardware in recommends no antibiotics at this time. - Data Points Medications Given: Discontinued Medications Fentanyl (Sublimaze) 50 mcg IVP EDNOW ONE Stop: 04/07/18 09:57 Last Admin: 04/07/18 10:01 Dose: 50 mcg Propofol (Diprivan) 100 mg IVP EDNOW ONE Stop: 04/07/18 10:20 Last Admin: 04/07/18 10:37 Dose: 100 mg Propofol (Diprivan) 100 mg IVP EDNOW ONE Stop: 04/07/18 11:09 Last Admin: 04/07/18 11:10 Dose: 100 mg Departure - Departure Disposition: Home, Routine, Self-Care Clinical Impression: Hip dislocation, left, Abscess Condition: Good Instructions: Hip Dislocation (ED) Additional Instructions: Wear your brace. Dr. Contreras would like to see you in the office on Saturday. Please call his office to schedule a time for the appointment on Saturday. He is aware of the packing after we drain the abscess left hip. He will remove the packing. Return sooner for worsening symptoms Referrals: Patient,NotPresent [Unknown] - As per Instructions
[2018-04-07] MEDS ORDERED: fentaNYL 100 MCG/2 ML INJ IVP ONE (09:56)
[2018-04-07] MEDS ORDERED: fentaNYL 100 MCG/2 ML INJ ONE (09:57)
[2018-04-07] MEDS ORDERED: PROPOFOL 200 MG/20 ML VIAL IVP ONE ×2 (10:19→11:08)
[2018-04-07] MEDS ORDERED: PROPOFOL 200 MG/20 ML VIAL ONE (10:20)
[2018-04-07 12:32] VITALS: BP 121/86
== END 2018-04-07 12:31 | disposition home or self-care (01) ==
LOC: EDUNIT#
PROC: 0SSBXZZ Reposition Left Hip Joint, External Approach (ICD-10-PCS; principal; 2018-04-07)
DX: S73.005A Unspecified dislocation of left hip, initial encounter (principal); W19.XXXA Unspecified fall, initial encounter
CPT/HCPCS: 27250; 73501; 73502; 96374; 99152; 99285; J2704; J3010; L2580